=== PATIENT | female | born 1990 ===

== ENCOUNTER 2021-11-07 17:51 | Inpatient (IN) | payer OTHER ==
[~2021-11-07] VITALS: Ht 154.9 cm; Wt 101.7 kg
[2021-11-07 18:22] VITALS: BP 138/76
[2021-11-07 20:04] VITALS: BP 148/84
[2021-11-07 20:40] VITALS: BP 139/82
[2021-11-07 23:07] VITALS: BP 144/77
[2021-11-07 23:26] LABS: HEMATOCRIT 42.9 % (36.0-47.0); HEMOGLOBIN 14.9 g/dl (12.0-15.5); MEAN CORPUSCULAR HEMOGLOBIN 30.2 pg (27.0-33.0); MEAN CORPUSCULAR HGB CONC 34.7 g/dl (32.0-36.5); PLATELET COUNT, AUTOMATED 253 10^3/uL (150-450); RED BLOOD COUNT 4.93 10^6/uL (4.00-5.40); WHITE BLOOD COUNT 12.9 10^3/uL (4.0-10.0)
[2021-11-07] MEDS ORDERED: OXYTOCIN 30 UNITS IN 0.9% NaCl 500ML IV BAG (J2590) As Ordered ONE (23:37)
[2021-11-07 23:52] VITALS: BP 150/74
[2021-11-07] MEDS ORDERED: ALBU2.5V10 NEB (23:57)
[2021-11-08] VITALS (10 sets, daily range): BP systolic 101–171; BP diastolic 56–81
[2021-11-08 00:57] LABS: HIV 1&2 SCREEN CENTAUR NEGATIVE (NEGATIVE)
[2021-11-08] MEDS ORDERED: ACETAMINOPHEN TAB 650MG DOSE (2X325MG) PO PRN (01:05)
[2021-11-08] MEDS ORDERED: DIBUCAINE 1% OINTMENT 30GM TOP PRN (01:05)
[2021-11-08] MEDS ORDERED: METHYLERGONOVINE MALEATE 0.2 MG TAB PO PRN (01:05)
[2021-11-08] MEDS ORDERED: OXYTOCIN DRIP 30 UNITS in IV 1 EA IV ONE (01:05)
[2021-11-08] MEDS ORDERED: DOCUSATE SODIUM 100MG CAPSULE PO PRN (01:05)
[2021-11-08] MEDS ORDERED: RHOGAM 300 MCG (1500 IU) INJ (J2790) IM SCH (01:05)
[2021-11-08] MEDS ORDERED: IBUPROFEN 600MG TAB PO PRN (01:05)
[2021-11-08] MEDS: ACETAMINOPHEN 500 MG TAB PO PRN ×3 (02:29→21:00)
[2021-11-08] MEDS: IBUPROFEN 800 MG TAB PO PRN ×2 (04:15→16:36)
[2021-11-08] MEDS: PRENATAL VITAMINS CHEWABLE TABLET PO SCH (09:00)
[2021-11-09] MEDS: IBUPROFEN 800 MG TAB PO PRN ×3 (01:26→15:39)
[2021-11-09 06:00] VITALS: BP 98/54
[2021-11-09] MEDS: PRENATAL VITAMINS CHEWABLE TABLET PO SCH (07:59)
[2021-11-09] MEDS ORDERED: ACET-683 PO (14:18)
[2021-11-09] MEDS ORDERED: IBUP80TA PO (14:18)
[2021-11-10] MEDS ORDERED: MEASLES,MUMPS,RUBELLA VACCINE INJ (MMR-II) (90707) SC.IMMUN ONE (09:00)
== END 2021-11-09 18:45 | disposition home or self-care (01) | DRG 560 ==
LOC: M LDO 17:51 → M LDI 21:16 → M OBS 11-08 02:45
PROVIDERS: ADMIT Specialist; ATTEND Specialist
PROC: 10E0XZZ Delivery of Products of Conception, External Approach (ICD-10-PCS; principal; 2021-11-07)
PROC: 10907ZC Drainage of Amniotic Fluid, Therapeutic from Products of Conception, Via Natural or Artificial Opening (ICD-10-PCS; 2021-11-07)
DX: O34.211 Maternal care for low transverse scar from previous cesarean delivery (principal); F17.200 Nicotine dependence, unspecified, uncomplicated; Z37.0 Single live birth; Z3A.39 39 weeks gestation of pregnancy; O99.334 Smoking (tobacco) complicating childbirth